=== PATIENT | female | born 1955 | race Caucasian/White ===

== ENCOUNTER 2018-01-21 10:42 | Emergency (ER) | payer OTHER, SELFPAY ==
[2018-01-21 10:45] VITALS: BP 153/79; PULSE 78; RESP 16; TEMP 36.7; O2SAT 100; BMI 27.8
--- NOTE | 2018-01-21 11:03 | EKG12_ITS ---
Test Reason : BACK PAIN Blood Pressure : / mmHG Vent. Rate : 071 BPM Atrial Rate : 071 BPM P-R Int : 188 ms QRS Dur : 090 ms QT Int : 368 ms P-R-T Axes : 061 013 048 degrees QTc Int : 399 ms Normal sinus rhythm Normal ECG Confirmed by PATIENCE CARDONA, RAQUEL ([id number]), movie editor NELIA HANEY ([id number] on 01/24/2018 8:45:36 AM Referred By: ANT Confirmed By:RAQUEL MORIN MD
--- NOTE | 2018-01-21 11:03 | CT_ITS ---
STUDY: CT ABDOMEN AND PELVIS WITHOUT CONTRAST REASON FOR EXAM: Female, 62 years old. RIGHT SIDED BACK PAIN WITH DEEP BREATH. RADIATION DOSAGE (If Supplied By Facility): CTDIvol = ( 7.87 ) mGy, DLP = ( 401.30 ) mGycm TECHNIQUE: Transaxial images were obtained from the dome of the diaphragm to the symphysis pubis without oral contrast, and without intravenous contrast. Sagittal and coronal images were reconstructed. Individualized dose optimization techniques were used for this CT. COMPARISON: None. FINDINGS: There is trace right pleural effusion and atelectasis. The visualized portions of the heart are within normal limits. Normal liver. Normal gallbladder and extrahepatic biliary system. Normal spleen. Normal pancreas. Normal bilateral adrenal glands. Normal right kidney. Normal left kidney. Normal visualized stomach. Normal small intestine. There are multiple colonic diverticula consistent with diverticulosis. The appendix is visualized and appears normal. There is diffuse atherosclerotic calcification of the abdominal aorta, without a demonstrated aneurysm. Normal inferior vena cava. Normal retroperitoneum. Normal urinary bladder. Normal abdominal wall. There are diffuse degenerative changes of the visualized lumbar spine. CT/Abdomen/Pelvis without Cont IMPRESSION: Trace right pleural effusion. No hydronephrosis or urolithiasis. Mild diverticulosis. Mild aortoiliac atherosclerosis Electronically Signed: María Shine MD at 12:08 EDT Tel , Service support ,
--- NOTE | 2018-01-21 11:05 | ED.VISSUMM ---
- ER Visit Summary Date of Service: 01/21/18 Chief Complaint: [] Epigastric pain radiating to the back for a few days History of Present Illness: The patient is a 62 F [] has really no significant past medical history she indicates she is having epigastric pain that radiates to her back for a few days she was seen in urgent care and sent to the emergency department. She has no history of cardiovascular disorders GI ailments, no risk factors. She indicates she feels a pressure in the epigastric and right to the back nothing seems to trigger it or alleviate it. She is quite active physically. She indicates she believes it first began when she was exercising in the gym machine and she felt some discomfort it did not go away. She does report she had a recent EGD because of what was concerning for reflux symptoms, she indicates the EGD was unremarkable she had biopsies done that was also unremarkable she was indicated she was should see ENT because of nighttime coughing and gagging, she herself denies history of MA PE DVT her bowel bladder habits are normal she is eating drinking without difficulty Physical Examination: [] Vitals are normal she is in no distress she takes her hand and points to the epigastric area and then points horizontally to her back, the pain seems to be slightly worse when she moves or takes a deep breath but she denies dyspnea fever cough shortness of breath her HEENT exam is unremarkable her neck is supple her lungs are clear the heart tones unremarkable abdomen soft and nontender there is no area of discomfort she subjectively again points to the epigastric region her C-spine T-spine and lumbar back are unremarkable she has full range of motion of all 4 extremities she is walking around room without difficulty She assures me she did not traumatize herself except for doing these exercises with the bicep press type machine, she is had a negative review of systems given all the above and her complaints about her recent GI elements or workup that did not reveal a diagnosis, a comprehensive evaluation will be pursued Test Results: [] Emergency Department Course and Treatment: [] Studies chest x-ray EKG abdominal CT are generally unremarkable, the x-rays of the chest show diffuse generalized DJD see those reports Given this began while she was doing exercise type activity as above given all of the above findings physical exam workup etc. I explained to this could be something musculoskeletal it could also be related to something occult, given her GI ailment history I do not want to start her on any nonsteroidals she will be started on Tylenol 3 bland diet and she will follow with her family doctor next few days return for change in symptoms and she understands she needs follow-up because the definitive diagnosis unestablished but again she feels well and wants to go home Treatment Plan: [] Disposition: [] Home stable Impression: [] epiGastric pain and back pain This note was generated with [employer] dictation software. It may contain incorrect words, spelling, and punctuation that were not noted in review of the chart prior to signing ED Disposition - Plan for ED Patient: Chief Complaint: Back Referrals: Care Physician,No Primary [NON-STAFF] -
--- NOTE | 2018-01-21 11:08 | ED.DCSUM_ITS ---
- ER Visit Summary Date of Service: 01/21/18 Chief Complaint: [] Epigastric pain radiating to the back for a few days History of Present Illness: The patient is a 62 F [] has really no significant past medical history she indicates she is having epigastric pain that radiates to her back for a few days she was seen in urgent care and sent to the emergency department. She has no history of cardiovascular disorders GI ailments, no risk factors. She indicates she feels a pressure in the epigastric and right to the back nothing seems to trigger it or alleviate it. She is quite active physically. She indicates she believes it first began when she was exercising in the gym machine and she felt some discomfort it did not go away. She does report she had a recent EGD because of what was concerning for reflux symptoms, she indicates the EGD was unremarkable she had biopsies done that was also unremarkable she was indicated she was should see ENT because of nighttime coughing and gagging, she herself denies history of [place] PE DVT her bowel bladder habits are normal she is eating drinking without difficulty Physical Examination: [] Vitals are normal she is in no distress she takes her hand and points to the epigastric area and then points horizontally to her back , the pain seems to be slightly worse when she moves or takes a deep breath but she denies dyspnea fever cough shortness of breath her HEENT exam is unremarkable her neck is supple her lungs are clear the heart tones unremarkable abdomen soft and nontender there is no area of discomfort she subjectively again points to the epigastric region her C-spine T-spine and lumbar back are unremarkable she has full range of motion of all 4 extremities she is walking around room without difficulty She assures me she did not traumatize herself except for doing these exercises with the bicep press type machine, she is had a negative review of systems given all the above and her complaints about her recent GI elements or workup that did not reveal a diagnosis, a comprehensive evaluation will be pursued Test Results: [] Emergency Department Course and Treatment: [] Studies chest x-ray EKG abdominal CT are generally unremarkable, the x-rays of the chest show diffuse generalized DJD see those reports Given this began while she was doing exercise type activity as above given all of the above findings physical exam workup etc. I explained to this could be something musculoskeletal it could also be related to something occult, given her GI ailment history I do not want to start her on any nonsteroidals she will be started on Tylenol 3 bland diet and she will follow with her family doctor next few days return for change in symptoms and she understands she needs follow -up because the definitive diagnosis unestablished but again she feels well and wants to go home Treatment Plan: [] Disposition: [] Home stable Impression: [] epiGastric pain and back pain This note was generated with [employer] dictation software. It may contain incorrect words, spelling, and punctuation that were not noted in review of the chart prior to signing ED Disposition - Plan for ED Patient: Chief Complaint: Back Referrals: Care Physician,No Primary [NON-STAFF] -
[2018-01-21 11:38] LABS: Bacteria 0 SEEN /hpf (None Seen); Mucous, Urine 0 SEEN /hpf (<or=2+); Red Blood Cells-Urine 0 SEEN /hpf (0-5); White Blood Cells 0 SEEN /hpf (0-5)
--- NOTE | 2018-01-21 11:38 | ED.RN ---
pain medicine offered and pt stated she does not want any pain or nausea medication at this time
[2018-01-21 11:39] LABS: Color, Urine Yellow (Yellow); Glucose, Dipstick Normal (Normal); Ketone-Dipstick Negative (Negative); Leukocyte Esterase-Dipstick Negative /ul (Negative); Nitrite-Dipstick Negative (Negative); Occult Blood-Urine 10 /ul (Negative); Protein-Dipstick Negative (Negative); Urine Bilirubin Dipstick Negative (Negative); Urine Clarity Clear (Clear); Urine Urobilinogen Normal (Normal); Urine pH 6.5 (5.0 - 8.0)
[2018-01-21 11:41] LABS: Absolute Lymphocyte Count 1.38 X10^3/ul (0.83-4.51); Absolute Neutrophil Count 3.2 X10^3/uL (2.0-7.7); Basophil# 0.01 X10^3/uL; Basophil% 0.2 % (0-1); Eosinophil# 0.03 X10^3/uL; Eosinophils% 0.6 % (0-5); Hematocrit 41.8 % (37-47); Hemoglobin 13.7 g/dl (12.0-15.0); Lymphocyte # 1.38 X10^3/ul (4.0); Lymphocyte % 28.5 % (19-41); Mean Corp Hgb Conc 32.8 g/gl (32-36); Mean Corpuscular Hgb 29.7 pg (27.0-32.0); Mean Corpuscular Volume 90.5 fL (81-99); Mean Platelet Vol. 10.9 fl (6.2-12.0); Monocyte# 0.27 X10^3/uL; Monocyte% 5.6 % (0-10); Neutrophil # 3.15 X10^3/uL (2.7-7.7); Neutrophil % 65.1 % (47-70); POSITIVE COUNT NO; POSITIVE DIFFERENTIAL NO; POSITIVE MORPHOLOGY NO; Platelet Count 155 K/mm3 (150-450); RBC Distribution Width CV 12.8 % (11.6-14.6); RBC Distribution Width SD 42.1 fl (35.1-43.9); Red Blood Count 4.62 M/mm3 (4.2-5.4); White Blood Count 4.8 K/mm3 (4.4-11.0)
[2018-01-21] MEDS: 0.9% Normal Saline 1,000 ML 125 ML IV (11:42)
[2018-01-21 11:45] LABS: Squamous Epithelial Cells - UA 0-5 SEEN /hpf (5-10)
--- NOTE | 2018-01-21 11:48 | RAD_ITS ---
STUDY: X-RAY CHEST REASON FOR EXAM: Female, 62 years old. BACK PAIN WITH INSPIRATION AND PRESSURE IN THE CHEST. TECHNIQUE: Chest PA and lateral COMPARISON: None. FINDINGS: There is no focal consolidation, pneumothorax or pleural effusion. There is atherosclerotic calcification of the aortic arch with tortuosity. The cardiomediastinal silhouette is unremarkable. There are diffuse degenerative changes of the visualized thoracic spine. RAD/Chest PA and Lateral IMPRESSION: No acute pulmonary disease. Electronically Signed: María Shine MD at 12:13 EDT Tel , Service support ,
[2018-01-21 11:50] LABS: D-Dimer Quantitative (DVT/PE) 0.36 FEU/ug/m (0.27-0.49)
[2018-01-21 11:55] LABS: AST(SGOT) 15 U/L (15-37); Alanine Aminotransfer ALT/SGPT 20 U/L (13-56); Albumin, Serum 3.9 g/dL (3.2-5.0); Alkaline Phosphatase 100 U/L (45-117); Anion Gap 8 (5-15); BUN 14 mg/dL (7-18); BUN/Creat Ratio 19.3 RATIO (10-20); Bilirubin, Direct 0.09 mg/dL (0.00-0.30); Calcium,Total 8.8 mg/dL (8.5-10.1); Chloride 107 mmol/L (98-107); Creatinine, Serum 0.72 mg/dL (0.55-1.02); EST Glomerular Filtration Rate 87 mL/min (>60); Est Glom Filt Rate - Afr Amer 106 mL/min (>60); Estimated Creatinine Clearance 71.75 ml/min; Globulin 3.7 g/dL (2.2-4.2); Glucose 94 mg/dL (74-106); Lipase 126 U/L (73-393); Potassium 3.8 mmol/L (3.5-5.1); Protein, Total 7.6 g/dL (6.4-8.2); Sodium Level 142 mmol/L (136-145)
[2018-01-21 12:11] VITALS: BP 131/66; PULSE 76; RESP 18; O2SAT 100
--- NOTE | 2018-01-21 12:58 | ED.DEP ---
ED Disposition - Plan for ED Patient: Chief Complaint: Back Instructions: ED Sprain Strain Lumbar Prescriptions: Acetaminophen/Codeine #3 [Tylenol #3 Tablet] 1 - 2 tab PO Q6H PRN #12 tab PRN Reason: Pain Referrals: Care Physician,No Primary [NON-STAFF] -
[2018-01-21 13:45] VITALS: BP 107/84; PULSE 73; RESP 18; O2SAT 99
== END 2018-01-21 13:47 | disposition home or self-care (01) ==
PROVIDERS: Emergency Provider Emergency Medicine; Family Provider Internal Medicine; PCP Internal Medicine
DX: R10.13 Epigastric pain (principal); M54.9 Dorsalgia, unspecified
CPT/HCPCS: 71046; 74176; 80048; 80076; 81001; 83690; 84484; 85025; 85379; 93005; 96361; 96374; 96375; 99283; A4216

== ENCOUNTER 2023-10-30 09:59 | Emergency (ER) | payer OTHER, SELFPAY ==
[2023-10-30 10:00] VITALS: BP 109/82; PULSE 86; RESP 16; TEMP 36.4; O2SAT 100; BMI 27.8
[2023-10-30] MEDS: Morphine 4 MG/ML Syringe IM (11:27)
--- NOTE | 2023-10-30 11:29 | EDS_ITS ---
HPI History of Present Illness Chief Complaint: Upper Extremity Injury Informant: patient Narrative Narrative: Patient is a 67-year-old female with worsening left shoulder pain. Denies any trauma. Notes she woke up with pain 2 days ago but did not think much of it. The pain persisted throughout the day. She took Aleve with no relief. He also tried arthritis strength Tylenol again with no relief. She states that it is a sharp stabbing pain in her anterior and posterior shoulder intermittently that is worse with movement. It is constantly throbbing in nature. States the pain radiates all the way down to her hand. It is worse when she reclines. She denies any paresthesias but does have this vague sensation of numbness/pain of her entire left hand. Denies any trauma or injury. No she has had prior bone spurs remotely that cause pain but never this severe. Could not sleep last night because the pain was so bad so she came to the ER. Does follow-up with orthopedics as a prior right total shoulder surgery with Dr. Bar. No complaints or concerns at this time. [facility] Medical History Fatigue Home Medications NK 10/23/21 [History Last Taken Unknown] hydrocodone-acetaminophen 5-325mg 5mg-325mg 1 tab PO Q6H PRN PRN Pain 3 days #12 TABLETS 10/30/23 [Rx Last Taken Unknown] ondansetron HCl 4 mg tablet 4 mg PO Q6H PRN nausea and vomiting #10 tabs 10/30/23 [Rx Last Taken Unknown] prednisone 20 mg tablet 40 mg (2 x 20 mg) PO DAILY #8 tabs 10/30/23 [Rx Last Taken Unknown] Allergy/AdvReac Type Severity Reaction Status Date / Time No Known Allergies Allergy Verified 10/30/23 10:00 Surgical History H/O section Social History Smoking Status: Never smoker ROS ROS ED Constitutional Constitutional ED: Denies chills or fever(s) Cardiovascular Cardiovascular: Denies chest pain Respiratory/Chest Respiratory/Chest: Denies cough Gastrointestinal Gastrointestinal: Denies nausea or vomiting Musculoskeletal Musculoskeletal: Reports other Details: left shoulder pain Integumentary Denies rash Neurologic Neurologic: Denies headache(s), paresthesias or weakness EXAM Physical Exam Const Vital Signs: 10/30/23 10:00 Temperature 97.6 F L Temperature Source Temporal Pulse Rate 86 Respiratory Rate 16 Blood Pressure 109/82 H Blood Pressure Mean 91 Pulse Ox 100 Oxygen Delivery Method Room Air Positive well nourished and well developed General Appearance ED: well developed and NAD Eyes PERRL Neck full ROM Chest Wall inspection of chest normal and palpation of chest normal Resp normal respiratory effort and clear to auscultation bilaterally Cardio regular rate and regular rhythm Cardio Narrative: 2 Plus radial pulses GI non-tender and non-distended Back/Spine Cervical Spine: Negative for cervical spine tenderness Thoracic Spine / Upper Back: Negative for thoracic spinal tenderness Extremity Extremity Narrative: Range of motion of the left shoulder secondary to pain. No obvious deformity of the shoulder. No tenderness palpation of the clavicle. Pinpoint tenderness to palpation over the insertion of the long head of the bicep muscle as well as tenderness to palpation more diffusely of the posterior shoulder. Unable to perform strength testing of the shoulder/range of motion secondary to pain. No obvious deformity or tenderness palpation of the humerus, elbow or distal left arm. Normal intrinsic and extrinsic movements of the hands. Neuro oriented x3, moves all extremities, no focal motor deficits and no sensory deficits noted Sensorium / Orientation: alert Psych mental status grossly normal Mood & Affect: anxious Skin Lesions: no lesions Rashes: no rashes MDM MDM MDM Narrative Medical decision making narrative: Evaluated for worsening severe left shoulder pain. This seems very muscle skeletal I do not think is referred cardiac or pulmonary pain. She is neurovascular intact distally. She does have pinpoint tenderness of the right anterior shoulder. Will obtain x-ray however she denies any recent trauma. X-ray viewed by myself as well as radiology shows no acute fracture or dislocation but does show findings consistent with calcific tendinitis. This corresponds to her area of pain. Patient is given a dose of 4 mg IM morphine in the emergency room. She has improvement of pain with this. Will be discharged with prescription for [place] (has tolerated Vicodin in the past) as well as a burst of prednisone. Is given first dose of prednisone in the emergency room. We discussed a sling however patient states that she tried a sling at home and it made it worse because of the positioning. Discussed range of motion exercises to prevent frozen shoulder. She verbalized agreement understand this. Will follow-up with [facility] (she previously saw Dr. De León for her right shoulder). Given return precautions. Discharged home in stable and improved condition. Radiography Diagnostic Testing: Diagnostic Data Shoulder X-Ray 10/30/23 11:30 IMPRESSION: No acute abnormality. Calcific tendinitis. Electronically Signed: Anselmo Heath MD at 11:48 EST , Discharge Plan Triage Chief Complaint: Upper Extremity Injury ED Provider: Myrna Lopez Dx/Rx/DC Orders Clinical Impression: Calcific tendonitis of left shoulder Instructions: The Shoulder Joint, ED Tendonitis Prescriptions: New hydrocodone-acetaminophen 5-325 mg tablet 1 tab PO Q6H PRN PRN (Reason: Pain) 3 Days Qty: 12 0RF prednisone 20 mg tablet 40 mg PO DAILY Qty: 8 0RF ondansetron HCl 4 mg tablet 4 mg PO Q6H PRN (Reason: nausea and vomiting) Qty: 10 0RF No Action NK Primary Care Provider: Sada Sanabria Referrals: Sada Sanabria MD [Primary Care Provider] - Juancarlos Bar DO [Med Staff - Active Staff] - 3-5 Days if not improving Activity Restrictions/Additional Instructions: He also take additional Tylenol and alternate with ibuprofen for pain. Please be aware that your pain medicine does have 1 regular strength Tylenol in it. As we discussed please perform range of motion exercises (small habematolel, large habematolel) to prevent associated frozen shoulder. Disposition Disposition: Home, Self Care
--- NOTE | 2023-10-30 11:30 | RAD_ITS ---
EXAM: XR LEFT SHOULDER COMPLETE, 2 OR MORE VIEWS CLINICAL INDICATION: Injury/Pain TECHNIQUE: Two or more views of the left shoulder. COMPARISON: No relevant prior studies available. FINDINGS: BONES/JOINTS: No acute abnormality. SOFT TISSUES: Soft tissue calcification adjacent to the greater tubercle consistent with calcific tendinitis. No soft tissue swelling or gas. No radiopaque foreign body. RAD/Shoulder min 2 Views IMPRESSION: No acute abnormality. Calcific tendinitis. Electronically Signed: Anselmo Heath MD at 11:48 EST ,
--- OUTSIDE RECORDS SUMMARY | 2023-10-30 11:32 | XMS RPT_ITS | CCD ---
Author Name Unknown Address [address] [place] [address] Organization [facility] Care Team Providers Care Director Of First Impressions Name Role Phone Vides, Anuj K Unavailable Unavailable Vides, Anuj K Unavailable Unavailable Ganta, Sada C Unavailable Unavailable Vides, Anuj K Unavailable Unavailable Vides, Anuj K Unavailable Unavailable Ganta, Sada C Unavailable Unavailable JEANCARLOS, RYNE Case Admitting Unavailable JEANCARLOS, RYNE Case Attending Unavailable JEANCARLOS, RYNE Case Primary Care Unavailable JEANCARLOS, RYNE Case Admitting Unavailable JEANCARLOS, RYNE Case Attending Unavailable JEANCARLOS, RYNE Case Primary Care Unavailable Sada Sanabria MD Primary Care Provider [phone] Sada Sanabria MD Primary Care Provider [phone] Unavailable Primary Care Provider Unavailabl e VIDES, ANUJ K Attending Unavailable VIDES, ANUJ K Referring Unavailable GANTA, SADA Primary Care Unavailable ENRIQUEZKELSI ALLRED Referring Unavailable GANTA, SADA Primary Care Unavailable KELSI ENRIQUEZ Attending Unavailable FABRIZIO LAKIA Referring Unavailable GANTA, SADA Primary Care Unavailable OLDERLAKIA Referring Unavailable GANTA, SADA Primary Care Unavailable Sada Sanabria MD Primary Care Provider [phone] Allergies Allergy Classification Reported Allergen(s) Allergy Type Date of Onset Reaction(s) Facility (1 source) Acetaminophen / Codeine; Translations: [Tylenol with Codeine] [facility] source) FLUoxetine; Translations: [PROzac] [facility] (12 sources) Acetaminophen / Codeine; Translations: [ACETAMINOPHEN-COD EINE] Drug Allergy 01-27-2018 Intolerance [facility] (12 sources) FLUoxetine; Translations: [FLUOXETINE] Drug Allergy 07-18-2019 Unknown [facility] (12 sources) FLUoxetine; Translations: [FLUOXETINE HCL] Drug Allergy 06-05-2008 [facility] Work Phone: (12 sources) nefazodone; Translations: [NEFAZODONE HCL] Drug Allergy 06-05-2008 [facility] Work Phone: (12 sources) traMADol; Translations: [TRAMADOL] Drug Allergy 12-13-2018 Intolerance [facility] Medications Completed/Discontinued Medications Medication Drug Class(es) Dates Sig (Normalized) Sig (Original) cholecalciferol 0.05 mg oral capsule (2 sources) Vitamin D Start: 05-26-2015 End: 07-26-2022 take 1 capsule by mouth once daily Cholecalciferol, Vitamin D3, (VITAMIN D-3) 2,000 unit cap Take 1 capsule by mouth once daily. 0 05/26/2015 07/26/2022 Discontinued (Discontinued by Patient) Problems Active Problems Problem Classification Problem Date Documented Date Episodic/Chronic Anxiety disorders (14 sources) Anxiety; Translations: [Anxiety disorder, unspecified] Onset: 07-09-2021 Chronic Cataract (20 sources) Bilateral pseudophakia; Translations: [Presence of intraocular lens] Onset: 02-16-2019 Chronic Disorders of lipid metabolism (12 sources) Mixed hyperlipidemia; Translations: [Mixed hyperlipidemia] Onset: 01-18-2022 01-18-2022 Chronic Inflammation; infection of eye (except that caused by tuberculosis or sexually transmitteddisease) (11 sources) Bilateral punctate keratitis of eyes; Translations: [Punctate keratitis, bilateral] Onset: 08-14-2018 08-14-2018 Chronic Other connective tissue disease (2 sources) History of osteopenia; Translations: [Personal history of other diseases of the musculoskeletal system and connective tissue] Episodic Other eye disorders (13 sources) Posterior vitreous detachment of right eye; Translations: [Vitreous degeneration, right eye] Onset: 08-14-2018 Chronic Other eye disorders (13 sources) Bilateral vitreous floaters; Translations: [Other vitreous opacities, bilateral] Onset: 07-09-2021 Chronic Other inflammatory condition of skin (11 sources) Rosacea; Translations: [Rosacea, unspecified] Onset: 09-02-2006 10-12-2021 Chronic Other screening for suspected conditions (not mental disorders or infectious disease) (11 sources) Patient encounter status; Translations: [Encounter for screening mammogram for malignant neoplasm of breast] Onset: 12-20-2022 Episodic Residual codes; unclassified (2 sources) Postmenopausal state; Translations: [Asymptomatic menopausal state] Episodic Past or Other Problems Problem Classification Problem Date Documented Date Episodic/Chronic Blindness and vision defects (11 sources) Regular astigmatism of left eye; Translations: [Regular astigmatism, left eye] Onset: 08-14-2018 08-14-2018 Episodic Other bone disease and musculoskeletal deformities (11 sources) Osteopenia; Translations: [Other specified disorders of bone density and structure, unspecified site] Onset: 05-29-2014 05-29-2014 Episodic Other circulatory disease (11 sources) Clearing throat - hawking; Translations: [Other specified symptoms and signs involving the circulatory and respiratory systems] Onset: 12-27-2017 12-27-2017 Episodic Other connective tissue disease (1 source) Personal history of other diseases of the musculoskeletal system and connective tissue; Translations: [History of osteopenia] Onset: 01-03-2023 Episodic Other eye disorders (11 sources) H/O: R cataract extraction; Translations: [Cataract extraction status, right eye] Onset: 09-29-2018 09-29-2018 Episodic Other eye disorders (11 sources) H/O: L cataract extraction; Translations: [Cataract extraction status, left eye] Onset: 10-06-2018 10-06-2018 Episodic Other eye disorders (11 sources) Meibomian gland dysfunction of bilateral eyes; Translations: [Meibomian gland dysfunction right eye, upper and lower eyelids] Onset: 04-14-2019 04-14-2019 Episodic Other injuries and conditions due to external causes (2 sources) Foreign body in conjunctival sac; Translations: [Foreign body in conjunctival sac, left eye, initial encounter] Onset: 07-08-2020 07-08-2020 Episodic Other injuries and conditions due to external causes (9 sources) Foreign body in conjunctival sac, left eye, initial encounter; Translations: [Foreign body in conjunctival sac] Onset: 07-08-2020 07-08-2020 Episodic Residual codes; unclassified (11 sources) Insomnia; Translations: [Insomnia, unspecified] Onset: 09-07-2010 09-07-2010 Episodic Residual codes; unclassified (11 sources) Family history of breast cancer; Translations: [Family history of malignant neoplasm of breast] Onset: 05-26-2015 10-12-2021 Episodic Residual codes; unclassified (1 source) Asymptomatic menopausal state; Translations: [Asymptomatic postmenopausal state] Onset: 01-03-2023 Episodic Results Test Name Value Interpretation Reference Range Facil ity Vital Signs Date Time Vital Sign Value Performing Clinician Ivy stevenson 12-20-2022 08:53-0500 Body height 162.6 cm Kelsi Enriquez APRN.INDUSTRIAL CUSTODIAN Work Phone: [facility] 12-20-2022 08:53-0500 Body weight 79.38 kg Kelsi Enriquez JUNIOR MANUFACTURING ENGINEER.INDUSTRIAL CUSTODIAN Work Phone: [facility] 12-20-2022 08:53-0500 Diastolic blood pressure 64 mm[Hg] Kelsi Enriquez JUNIOR MANUFACTURING ENGINEER.INDUSTRIAL CUSTODIAN Work Phone: [facility] 12-20-2022 08:53-0500 Systolic blood pressure 120 mm[Hg] Kelsi Enriquez JUNIOR MANUFACTURING ENGINEER.INDUSTRIAL CUSTODIAN Work Phone: [facility] 07-26-2022 08:44-0400 Body weight 76.2 kg Lakia Older JUNIOR MANUFACTURING ENGINEER.INDUSTRIAL CUSTODIAN Work Phone: [facility] 07-26-2022 08:44-0400 Diastolic blood pressure 82 mm[Hg] Lakia Older JUNIOR MANUFACTURING ENGINEER.INDUSTRIAL CUSTODIAN Work Phone: [facility] 07-26-2022 08:44-0400 Heart rate 68 /min Lakia Older JUNIOR MANUFACTURING ENGINEER.INDUSTRIAL CUSTODIAN Work Phone: [facility] 07-26-2022 08:44-0400 Respiratory rate 16 /min Lakia Older JUNIOR MANUFACTURING ENGINEER.INDUSTRIAL CUSTODIAN Work Phone: [facility] 07-26-2022 08:44-0400 Systolic blood pressure 124 mm[Hg] Lakia Older JUNIOR MANUFACTURING ENGINEER.INDUSTRIAL CUSTODIAN Work Phone: [facility] Encounters Encounter Date Encounter Type Care Provider Facility Start: 07-25-2023 End: 07-25-2023 ambulatory ANUJ VIDES Facility:[facility] Start: 07-25-2023 End: 07-25-2023 Patient encounter procedure Anuj Vides MD Work Phone: Ophthalmology Procedures Date Procedure Procedure Detail Performing Clinician Start: 01-03-2023 Dxa bone density sameer dy 1/> sites axial skel Kelsi Enriquez JUNIOR MANUFACTURING ENGINEER.INDUSTRIAL CUSTODIAN Work Phone: Start: 12-20-2022 MONICA SCREENING W LUIS Nai y Older JUNIOR MANUFACTURING ENGINEER.INDUSTRIAL CUSTODIAN Work Phone: Start: 12-20-2022 Mammography Kelsi case JUNIOR MANUFACTURING ENGINEER.INDUSTRIAL CUSTODIAN Work Phone: Start: 11-16-2021 Mammography Anuj diaz MD Work Phone: Start: 07-11-2021 Lipid 1996 panel - S nancy or Plasma Anuj Vides MD Work Phone: Start: 02-12-2019 Colonoscopy Anuj diaz MD Work Phone: Plan of Treatment Date Care Activity Detail Author Start: 02-12-2029 Colonoscopy COLONOSCOPY [facility] Start: 02-12-2029 COLORECTAL CANCER SCREENING COLORECTAL CANCER SCREENING [facility] Start: 07-11-2026 Lipid 1996 panel - S nancy or Plasma Lipid Screening [facility] Start: 07-11-2026 LIPID SCREEN LIPID SCREEN [facility] Start: 07-11-2024 DIABETES SCREEN DIABETES SCREEN [facility] Start: 07-11-2024 Diabetes Screening Diabetes Screenin g [facility] Start: 02-01-2024 HPV TESTING HPV TESTING [facility] Start: 02-01-2024 PAP TESTING PAP TESTING [facility] Start: 12-21-2023 Mammography [facility] Start: 07-26-2023 COVID-19 VACCINE (3 - Booster for Pfizer series) COVID-19 VACCINE (3 - Booster for Pfizer series) [facility] Immunizations Immunization Date Immunization Notes Care Provider Fa cili 03-10-2022 zoster vaccine recombinant Anuj Vides MD Work Phone: [facility] 01-18-2022 tetanus and diphther ia toxoids, adsorbed, preservative free, for adult use (5 Lf of tetanus toxoid and 2 Lf of diphtheria toxoid) Anuj Vides MD Work Phone: [facility] Work Phone: 07-20-2021 influenza, injectabl e, quadrivalent, contains preservative Anuj Vides MD Work Phone: [facility] Work Phone: 07-20-2021 influenza virus vaccine, unspecified formulation Anuj Vides MD Work Phone: [facility] 10-18-2018 influenza, injectabl e, quadrivalent, contains preservative Anuj Vides MD Work Phone: [facility] Work Phone: 11-28-2017 influenza, injectabl e, quadrivalent, contains preservative Anuj Vides MD Work Phone: [facility] Work Phone: 09-18-2014 influenza, seasonal, injectable Anuj Vides MD Work Phone: [facility] Work Phone: 08-29-2012 influenza virus vaccine, unspecified formulation Anuj Vides MD Work Phone: [facility] 09-07-2010 influenza virus vaccine, unspecified formulation Anuj Vides MD Work Phone: [facility] 07-19-2009 influenza virus vaccine, unspecified formulation Anuj Vides MD Work Phone: [facility] Work Phone: 09-17-2008 influenza virus vaccine, unspecified formulation Anuj Vides MD Work Phone: [facility] Work Phone: 06-16-2006 tetanus and diphther ia toxoids, adsorbed, preservative free, for adult use (2 Lf of tetanus toxoid and 2 Lf of diphtheria toxoid) Anju Vides MD Work Phone: [facility] Work Phone: Payers Date Payer Category Payer Private Health Insurance [id number] 2021 Private Health Insurance [id number] 2018 Unknown 1955 Unknown [id number] 1955 Unknown [id number] 1955 Unknown [id number] [id number] 1955 Unknown [id number] [id number] 1955 Unknown [id number] [id number] [id number] 1955 Unknown [id number] [id number] Unknown [id number] Social History Date Type Detail Facility Start: 12-20-2022 Tobacco smoking status NHIS Never smoked tobacco [facility] Work Phone: Start: 07-21-2022 End: 12-20-2022 Alcohol intake Current drinker of alcohol (finding) [facility] Start: 06-02-2021 History SDOH Alcohol Frequency 2 [facility] Start: 06-02-2021 History SDOH Alcohol Std Drinks 1 [facility] Start: 08-18-2016 History SDOH Alcohol Comment Rarely [facility] Start: 06-02-2021 History SDOH Social Connections Phone 5 [facility] Start: 06-02-2021 History SDOH Social Connections Get Together 98 [facility] Start: 06-02-2021 History SDOH Social Connections Living 3 [facility] Start: 06-02-2021 History SDOH Physical Activity DPW 7 [facility] Start: 06-02-2021 Education 12 [facility] Start: 1955 Sex Assigned At Female [facility] Start: 07-11-2022 End: 07-21-2022 Exposure to SARS-CoV-2 (event) Not sure [facility] Start: 12-20-2022 Tobacco use and exposure Smokeless tobacco non-user [facility] Start: 09-21-2020 End: 06-02-2021 History of Social function [facility] Work Phone: Start: 09-21-2020 End: 06-02-2021 Social connection and isolation panel [facility] Work Phone: How often do you get together with friends or relatives? Patient refused [facility] Work Phone: Do you belong to any clubs or organizations such as spiritism groups, unions, fraternal or athletic groups, or school groups? No [facility] Work Phone: Are you now , , , , never or living with a partner? [facility] Work Phone: How often to you hav e a drink containing alcohol? Monthly or less [facility] Work Phone: How many standard dr inks containing alcohol do you have on a typical day? 1 or 2 [facility] Work Phone: How often do you hav e 6 or more drinks on 1 occasion? Never [facility] Work Phone: Do you feel stress - tense, restless, nervous, or anxious, or unable to sleep at night because your mind is troubled all the time - these days [OSQ] To some extent [facility] Work Phone: (I/We) worried wheth er (my/our) food would run out before (I/we) got money to buy more. Never true [facility] Work Phone: Start: 06-02-2021 Gender identity Identifies as female gender (finding) [facility] Start: 06-02-2021 Sexual orientation Heterosexual (finding) [facility] Clinical Notes 09-02-2018 to 07-25-2023 Patient InstructionsAnuj Vides MD - 07/25/2023 3:11 PM Natan Toribio RT(R) - 01/03/2023 9:30 AM Michelle - Mammography Coordinator - 12/20/2022 1:55 PM ESTPatient Instructions Note Date & Type Note Facility 07-25-2023 Note HNO ID: [id number] Author: Anuj Vides MD Service: ? Author Type: Physician Type: Progress Notes Filed: 07/25/2023 3:13 PM Note Text: ASSESSMENT/PLAN: 1. Cataract, secondary, not obscuring vision, right - ICD9: 366.52, ICD10: H26.491 (primary diagnosis) -stable/monitor -not significant at this time 2. Posterior vitreous detachment of right eye - ICD9: 379.21, ICD10: H43.811 3. Vitreous floaters of both eyes - ICD9: 379.24, ICD10: H43.393 -Patient was given both written and verbal information on flashes and floaters. Patient was instructed to call the office ([phone]) immediately upon noticing flashes of light, increase in floaters, or changes in vision. 4. Pseudophakia of both eyes - ICD9: V43.1, ICD10: Z96.1 -Intraocular lens well centered 5. Anxiety - ICD9: 300.00, ICD10: F41.9 -Continue care with primary care physician Continue: Systane Complete one drop three times daily in both eyes I have confirmed and edited as necessary the relevant ophthalmic history, review of systems, surgical history, and ophthalmological examination findings as obtained by the ophthalmic technical staff. I have seen and examined Tabitha Nagy. I have discussed the examination findings, diagnosis, and treatment options with Tabitha Nagy and/or her family. I have also reviewed and agree with the assessment and plan as stated above and agree with all its relevant components. I gave the patient the opportunity to ask questions about the findings, diagnosis, and treatment options. Anuj Vides MD [facility] 07-25-2023 Instructions Anuj Vides MD - 07/25/2023 3:13 PM EDT Continue: Systane Complete one drop three times daily in both eyes If you have any questions please contact our office at [phone]. After office hours or on the weekend, please call Dr. Vides on his cell phone at [phone]. documented in this encounter [facility] 07-25-2023 History of Presen t illness Narrative ASSESSMENT/PLAN: 1. Cataract, secondary, not obscuring vision, right - ICD9: 366.52, ICD10: H26.491 (primary diagnosis) -stable/monitor -not significant at this time 2. Posterior vitreous detachment of right eye - ICD9: 379.21, ICD10: H43.811 3. Vitreous floaters of both eyes - ICD9: 379.24, ICD10: H43.393 -Patient was given both written and verbal information on flashes and floaters. Patient was instructed to call the office ([phone]) immediately upon noticing flashes of light, increase in floaters, or changes in vision. 4. Pseudophakia of both eyes - ICD9: V43.1, ICD10: Z96.1 -Intraocular lens well centered 5. Anxiety - ICD9: 300.00, ICD10: F41.9 -Continue care with primary care physician Continue: Systane Complete one drop three times daily in both eyes I have confirmed and edited as necessary the relevant ophthalmic history, review of systems, surgical history, and ophthalmological examination findings as obtained by the ophthalmic technical staff. I have seen and examined Tabitha Nagy. I have discussed the examination findings, diagnosis, and treatment options with Tabitha Nagy and/or her family. I have also reviewed and agree with the assessment and plan as stated above and agree with all its relevant components. I gave the patient the opportunity to ask questions about the findings, diagnosis, and treatment options. Anuj Vides MD documented in this encounter [facility] 01-03-2023 Note HNO ID: [id number] Author: Natan Izaguirre RT(R) Service: ? Author Type: Technologist Type: Progress Notes Filed: 01/03/2023 9:42 AM Note Text: Radiology Service Progress Note PATIENT NAME: Tabitha Nagy DATE OF SERVICE: January 03, 2023 TIME: 9:32 AM PATIENT IDENTITY VERIFICATION COMPLETED USING TWO (2) IDENTIFIERS: Name and Date of confirmed by patient verbally. FALL SCREENING: Has the patient had 2 falls in the last year or 1 fall with injury or currently using an Ambulatory Assistive Device (Walker, Cane, Wheelchair, Crutches, etc.)? No PATIENT GENDER DATA: Female. status: : No status: NO. PATIENT RELEVANT IMPLANT DATA REVIEWED: Not Applicable RADIOLOGY DEPARTMENT: Bone Density PERIPHERAL IV DATA: Not applicable SIGNED BY: RT Tyree(R) January 03, 2023 9:[address] [facility] 01-03-2023 History of Presen t illness Narrative Radiology Service Progress Note PATIENT NAME: Tabitha Nagy DATE OF SERVICE: January 03, 2023 TIME: 9:32 AM PATIENT IDENTITY VERIFICATION COMPLETED USING TWO (2) IDENTIFIERS: Name and Date of confirmed by patient verbally. FALL SCREENING: Has the patient had 2 falls in the last year or 1 fall with injury or currently using an Ambulatory Assistive Device (Walker, Cane, Wheelchair, Crutches, etc.)? No PATIENT GENDER DATA: Female. status: : No status: NO. PATIENT RELEVANT IMPLANT DATA REVIEWED: Not Applicable RADIOLOGY DEPARTMENT: Bone Density PERIPHERAL IV DATA: Not applicable SIGNED BY: RT Tyree(R) January 03, 2023 9:32 AM documented in this encounter [facility] 12-20-2022 Miscellaneous Notes December 21, 2022 PID: [id number] Tabitha Nagy [id number] [facility] [address] [place] [address] Dear Ms. Nagy, We are pleased to inform you that the results of your recent breast imaging exam on 12/20/2022 are normal. Early detection of cancer is very important. We also understand recommendations regarding breast cancer screening are controversial. Please discuss with your primary care provider which strategy is best for you and whether a mammogram is right for you. Your imaging studies and report will be kept on file at [facility] as part of your permanent medical record and are available for your continuing care. Thank you for allowing us to help in meeting your health care needs. Sincerely, Dr. Riley Interpreting Radiologist [facility] (Normal over 40) documented in this encounter [facility] 12-20-2022 Note HNO ID: [id number] Author: Kelsi Enriquez APRN.INDUSTRIAL CUSTODIAN Service: ? Author Type: Nurse Practitioner Type: Progress Notes Filed: 12/20/2022 9:23 AM Note Text: House Parent offered: Patient declines. Lida is a 67 year old who presents for an annual gynecologic exam without complaints. Works 32 hours a week at [employer] - really enjoys her job. Postmenopausal: Yes since age 51 HRT use: No. Last Pap: 2019 normal HPV: 2019 negative History of abnormal pap: No Last mammogram: today, pending History of abnormal mammogram: Yes , has needed additional imaging, scattered fibroglandular elements Sexually active: Yes, rarely due to ED Patient concerns for STD exposure: No. Time with current partner: 41 years Pain with intercourse: Yes, uses lubricant Postcoital bleeding: No Hot flashes: No Night sweats: No Vaginal dryness: Yes, lubricant helpful with SI Documentation from previous visit of 01/31/2019 was copied and pasted, documentation has been reviewed and edited as necessary for today's visit OB History T2 L2 SAB3 IAB0 Ectopic0 Multiple0 Live Births0 Comment: Menarche at age 12. G 5 P 2. AFB 31. Menopause at age 51. Manager Nursing History LMP: 09/16/2006, Postmenopausal Age at Menarche: Age at First : Age at Menopause: Manager Nursing History Comments: Sexual Activity: Yes; Male; Postmenopausal Contraception: Tubal Ligation PAST MEDICAL HISTORY Diagnosis Date Abnormal mammogram, unspecified 10/29/2008 Acid reflux 11/28/2017 Acute, but ill-defined, cerebrovascular disease Cataract COVID-19 virus infection 05/24/2021 s/p COVID vaccine Depressive disorder, not elsewhere classified 03/23/2006 Impingement syndrome, shoulder, left Other acne Other bursitis disorders hips Pain in limb 03/23/2006 Right Wrist Pain Solitary cyst of breast 10/2008 right breast-MRI Variants of migraine, not elsewhere classified, without mention of intractable migraine without mention of status migrainosus PAST SURGICAL HISTORY Procedure Laterality Date DELIVERY ONLY 1988 , low transverse DELIVERY ONLY 1997 , low transverse COLONOSCOPY 2019 10 yr interval COLONOSCOPY FLX DX W/COLLJ SPEC WHEN PFRMD 12/09/2008 Colonoscopy DILATION AND CURETTAGE DXAND/THER NONOBSTETRIC 1986 Dilation AND curettage DILATION AND CURETTAGE DXAND/THER NONOBSTETRIC 1987 Dilation AND curettage DILATION AND CURETTAGE DXAND/THER NONOBSTETRIC 1994 Dilation AND curettage DILATION AND CURETTAGE DXAND/THER NONOBSTETRIC 1995 Dilation AND curettage ESOPHAGOGASTRODUODENOSCOPY TRANSORAL DIAGNOSTIC 01/02/2018 EGD MRI BREAST THAIS 10/02/2008 PAST SURGICAL HISTORY OF PAST SURGICAL HISTORY OF 1997 BTO PAST SURGICAL HISTORY OF 04/23/2009 athroscopy right shoulder REDUCTION OF LARGE BREAST 02/2012 XCAPSL CTRC RMVL INSJ IO LENS PROSTH W/O ECP Right 09/28/2018 Cataract Extraction with Femtosecond Laser (LenSx) XCAPSL CTRC RMVL INSJ IO LENS PROSTH W/O ECP Left Femtosecond with LRI FAMILY HISTORY Problem Relation Age of Onset Diabetes Mother Breast Cancer Mother diagnosed at age 74 Hypertension Father Heart Father Diabetes Father Age 82 Cataract Father SOCIAL HISTORY Social History Tobacco Use Smoking status: Never Smokeless tobacco: Never Vaping Use Vaping Use: Never used Substance Use Topics Alcohol use: Yes Comment: Rarely Drug use: No REVIEW OF SYSTEMS Abdomen: No abdominal pain, nausea, vomiting, diarrhea, or constipation. No bloating, early satiety, indigestion, or increased flatulence. Bladder: No dysuria, gross hematuria, urinary frequency, urinary urgency, or incontinence Breast: No breast lumps, nipple d/c, overlying skin changes, redness or skin retraction Allergies and current medication updated:Yes EXAM: BP 120/64 Ht 5' 4 (1.63m) Wt 175 lb (79.4kg) LMP 09/16/2006 BMI 30.02 kg/(m2). GENERAL: pleasant, female in no apparent distress HEENT: Normocephalic, atraumatic, mucus membranes moist, and no lesions NECK: Supple, full range of motion, no adenopathy, and thyroid normal DERMATOLOGY: Normal, without lesions, non-icteric, and non-hirsute BREAST: soft, non-tender, symmetric, no dominant mass, normal nipple-areolar complex, no lymphadenopathy, and no nipple discharge CHEST: Normal inspiratory effort ABDOMEN: soft, non-tender, and no masses PELVIC: external genitalia normal, normal Bartholin's glands, urethra, Aventura's glands, no vulvar lesions, no cervical lesions, physiologic discharge present, normal appearing perineal body and perianal region BIMANUAL: uterus normal size, shape and consistency, no adnexal masses, and non-tender RECTOVAGINAL: deferred. NEURO: alert and oriented x3,exam grossly non-focal EXTREMITIES: normal ASSESSMENT/PLAN: 1) Health maintenance: Pap done with HPV. Mammogram ordered Mammogram (more content not included)... [facility] 12-20-2022 Instructions Kelsi Enriquez APRN.[facility] - 12/20/2022 9:10 AM EST Calcium and Vitamin D Supplementation (from the National Institutes of Health Office of Dietary Supplements 2011) Calcium 1200 mg daily - 600 mg twice a day if taking supplement and Vit D 800-1000 IU daily Calcium is required by the body for blood vessel, muscle, hormone and nerve functioning. Most of the body's calcium is stored in the bones and teeth where it supports structure and function. Bone is continuously broken down and reformed. When bone breakdown exceeds formation, especially in postmenopausal women, bone loss can increase the risk of osteoporosis and fractures. In addition to low calcium intake, women who smoke, have a family history of osteoporosis, are thin, or , or who take certain medications such as cancer chemotherapy, seizure mediations and steroids are at increased risk of osteoporosis. The calcium requirements in women change with age. The National Institutes of Health (NIH) recommends: 1000mg elemental calcium for premenopausal women age 19-50 1200mg elemental calcium for postmenopausal women and all women over 50 Milk, yogurt, and cheese are rich natural sources of calcium and are the major food contributors in the [place]. For example, 8oz of milk (whole, lowfat or skim) contains about 300mg calcium, 8oz of yogurt contains 415mg. Nondairy sources include salmon and sardines and vegetables, such as Turkmen cabbage, kale, and broccoli. Foods fortified with calcium include many fruit juices, tofu and cereals. For more food calcium content information, visit http://ods.od.nih.gov/factsheets /calcium. Calcium supplements come in several different forms. Remember that the recommendations are for millgrams (mg) of elemental calcium which may be less than the total weight of the supplement. The amount of elemental calcium is required to be printed on the label. Calcium carbonate is the least expensive form. It must be taken on a full stomach to be properly absorbed. Some patients may experience gas or constipation. Calcium phosphate and calcium citrate may be taken either with or without food and tend to have less side effects but are generally more expensive. Because of its ability to neutralize stomach acid, calcium carbonate is found in some [id number]-[id number] antacid products, such as Tums and Rolaids . Depending on its strength, each chewable pill or softchew provides 200 to 400 mg of elemental calcium. The percentage of calcium absorbed depends on the total amount of elemental calcium consumed at one time. Absorption is highest in doses <500mg. So a woman who takes 1,000mg/day of calcium from supplements should split the dose and take 500mg at two separate times during the day. Too much calcium can cause kidney stones, constipation, difficulty absorbing other nutrients and calcium buildup in blood vessels. Women under 50 should not exceed 2500mg/day (2000mg/day for women over 50) of calcium from food and supplements. Excessive alcohol and caffeine intake can inhibit absorption of calcium. Calcium can reduce the absorption of some medications if taken at the same time of day (bisphosphonates, thyroid medication, Phenytoin and other seizure medications, some antibiotics and iron supplements). Vitamin D promotes calcium absorption in the gut and maintains adequate blood levels of calcium and phosphate for normal bone growth and bone remodeling. Vitamin D also helps regulate cell growth as well as nerve, muscle and immune system function. Vitamin D is produced in the skin as a result of ultraviolet sunlight rays and must be altered in the liver and kidney to become its active form. Recommended intake according to the National Institutes of Health is 600 International Units (IU) for girls and women ages 1-70 and 800 IU for women over 70. Very few foods in nature contain vitamin D. The flesh of fatty fish (such as salmon, tuna, and mackerel) and fish liver oils are among the best sources. Small amounts of vitamin D are found in beef liver, cheese, mushrooms and egg yolks. Most people meet at least some of their vitamin D needs through exposure to sunlight. Season, time of day, length of day, cloud cover, smog, skin melanin content, and sunscreen are among the factors that affect UV radiation exposure and vitamin D synthesis. Despite the importance of the sun for vitamin D synthesis, it is prudent to limit exposure of skin to sunlight and avoid tanning beds. UV radiation is a carcinogen responsible for most of the estimated 1.5 million skin cancers that occur annually in the [place]. Lifetime cumulative UV damage to skin is also responsible for some age-associated dryness and other cosmetic changes. In supplements and fortified foods, vitamin D is available in two forms, D2 (ergocalciferol) and D3 (cholecalciferol). The two are equivalent at normal supplement doses. For women who require high supplement doses because of vitamin D deficiency, D3 may work better to raise blood levels. Some medications can prevent proper absorption of Vitamin D. These include laxatives, corticosteroids like prednisone, the seizure drugs phenobarbital and phenytoin, the weight-loss drug orlistat ( Xenical and AlliTM) and the cholesterol-lowering drug cholestyramine (Questran , LoCholest , and Prevalite ). Talk to your doctor about adjusting your recommended daily vitamin D dosage if you take these medications. You should not exceed 4000 mg of vitamin D supplementation daily unless specifically prescribed by your doctor. documented in this encounter [facility] 12-20-2022 History of Presen t illness Narrative House Parent offered: Patient declines. Lida is a 67 year old who presents for an annual gynecologic exam without complaints. Works 32 hours a week at [employer] - really enjoys her job. Postmenopausal: Yes since age 51 HRT use: No. Last Pap: 2019 normal HPV: 2019 negative History of abnormal pap: No Last mammogram: today, pending History of abnormal mammogram: Yes , has needed additional imaging, scattered fibroglandular elements Sexually active: Yes, rarely due to ED Patient concerns for STD exposure: No. Time with current partner: 41 years Pain with intercourse: Yes, uses lubricant Postcoital bleeding: No Hot flashes: No Night sweats: No Vaginal dryness: Yes, lubricant helpful with SI Documentation from previous visit of 01/31/2019 was copied and pasted, documentation has been reviewed and edited as necessary for today's visit OB History T2 L2 SAB3 IAB0 Ectopic0 Multiple0 Live Births0 Comment: Menarche at age 12. G 5 P 2. AF[employer] 31. Menopause at age 51. Manager Nursing History LMP: 09/16/2006, Postmenopausal Age at Menarche: Age at First : Age at Menopause: Manager Nursing History Comments: Sexual Activity: Yes; Male; Postmenopausal Contraception: Tubal Ligation PAST MEDICAL HISTORY Diagnosis Date Abnormal mammogram, unspecified 10/29/2008 Acid reflux 11/28/2017 Acute, but ill-defined, cerebrovascular disease Cataract COVID-19 virus infection 05/24/2021 s/p COVID vaccine Depressive disorder, not elsewhere classified 03/23/2006 Impingement syndrome, shoulder, left Other acne Other bursitis disorders hips Pain in limb 03/23/2006 Right Wrist Pain Solitary cyst of breast 10/2008 right breast-MRI Variants of migraine, not elsewhere classified, without mention of intractable migraine without mention of status migrainosus PAST SURGICAL HISTORY Procedure Laterality Date DELIVERY ONLY 1988 , low transverse DELIVERY ONLY 1997 , low transverse COLONOSCOPY 2019 10 yr interval COLONOSCOPY FLX DX W/COLLJ SPEC WHEN PFRMD 12/09/2008 Colonoscopy DILATION & CURETTAGE DX&/THER NONOBSTETRIC 1987 Dilation & curettage DILATION & CURETTAGE DX&/THER NONOBSTETRIC 1987 Dilation & curettage DILATION & CURETTAGE DX&/THER NONOBSTETRIC 1994 Dilation & curettage DILATION & CURETTAGE DX&/THER NONOBSTETRIC 1995 Dilation & curettage ESOPHAGOGASTRODUODENOSCOPY TRANSORAL DIAGNOSTIC 01/02/2018 EGD MRI BREAST THAIS 10/02/2008 PAST SURGICAL HISTORY OF PAST SURGICAL HISTORY OF 1997 BTO PAST SURGICAL HISTORY OF 04/23/2009 athroscopy right shoulder REDUCTION OF LARGE BREAST 02/2012 XCAPSL CTRC RMVL INSJ IO LENS PROSTH W/O ECP Right 09/28/2018 Cataract Extraction with Femtosecond Laser (LenSx) XCAPSL CTRC RMVL INSJ IO LENS PROSTH W/O ECP Left Femtosecond with LRI FAMILY HISTORY Problem Relation Age of Onset Diabetes Mother Breast Cancer Mother diagnosed at age 74 Hypertension Father Heart Father Diabetes Father Age 82 Cataract Father SOCIAL HISTORY Social History Tobacco Use Smoking status: Never Smokeless tobacco: Never Vaping Use Vaping Use: Never used Substance Use Topics Alcohol use: Yes Comment: Rarely Drug use: No REVIEW OF SYSTEMS Abdomen: No abdominal pain, nausea, vomiting, diarrhea, or constipation. No bloating, early satiety, indigestion, or increased flatulence. Bladder: No dysuria, gross hematuria, urinary frequency, urinary urgency, or incontinence Breast: No breast lumps, nipple d/c, overlying skin changes, redness or skin retraction Allergies and current medication updated:Yes EXAM: BP 120/64 Ht 5' 4 (1.63m) Wt 175 lb (79.4kg) LMP 09/16/2006 BMI 30.02 kg/(m^2). GENERAL: pleasant, female in no apparent distress HEENT: Normocephalic, atraumatic, mucus membranes moist, and no lesions NECK: Supple, full range of motion, no adenopathy, and thyroid normal DERMATOLOGY: Normal, without lesions, non-icteric, and non-hirsute BREAST: soft, non-tender, symmetric, no dominant mass, normal nipple-areolar complex, no lymphadenopathy, and no nipple discharge CHEST: Normal inspiratory effort ABDOMEN: soft, non-tender, and no masses PELVIC: external genitalia normal, normal Bartholin's glands, urethra, Aventura's glands, no vulvar lesions, no cervical lesions, physiologic discharge present, normal appearing perineal body and perianal region BIMANUAL: uterus normal size, shape and consistency, no adnexal masses, and non-tender RECTOVAGINAL: deferred. NEURO: alert and oriented x3,exam grossly non-focal EXTREMITIES: normal ASSESSMENT/PLAN: 1) Health maintenance: Pap done with HPV. Mammogram ordered Mammogram up to date Nutrition, exercise and routine health maintenance exams reviewed. Calcium/Vitamin D supplementation information provided. Colon cancer screening: up to date with screening BMD: ordered History of osteopenia 2) Follow up one year or sooner as needed Kelsi Enriquez APRN.CNP documented in this encounter [facility] 12-06-2022 Miscellaneous Notes Order placed. Thank you Lakia Diane APRN.CNP Pt called in asking for the mammogram screening with luis. She states that's what she had last year and her insurance pays for it. She was asking if provider could change it to that instead of the regular mammogram. documented in this encounter [facility] 10-25-2022 Miscellaneous Notes Contacted patient and scheduled mammogram and annual in December per patient request. Tish Fink Pss Mammogram ordered, please do not schedule earlier than a year from last mammogram. Thank you Lakia Diane APRN.INDUSTRIAL CUSTODIAN Patient requesting mamm order. Patient asking to schedule ob annual and mamm on same day. Please advise patient when order entered for scheduling. documented in this encounter [facility] 10-25-2022 Miscellaneous Notes Patient has been identified by name and date of : Yes, Provider Debi Lindsay RN Date 10/25/2021 Time 8:08 am Patient phones for refill(s): Requested Prescriptions Pending Prescriptions Disp Refills escitalopram oxalate (LEXAPRO) 5 mg tablet 90 tablet 3 Sig: Take 1 tablet by mouth once daily. Date of last office visit with pcp: 07/26/2022 Future appt: 01/24/2022 Last 2 Encounter Wt Readings: Date: Wt: 07/26/2022 76.2 kg (168 lb) 01/18/2022 74.8 kg (165 lb) Previous labs/tests for medication: Blood Pressure: BUN (mg/dL) Date Value 07/11/2021 12 Sodium (mmol/L) Date Value 07/11/2021 139 Last 1 Encounter BP Readings: Date: BP: 07/26/2022 124/82 Liver Function: ALT (U/L) Date Value 07/11/2021 16 AST (U/L) Date Value 07/11/2021 20 Please advise. Thank you. Debi Lindsay RN documented in this encounter [facility] 07-26-2022 Instructions Lakia Diane APRN.CNP - 07/26/2022 9:02 AM EDT Get your second Shingrix vaccine this month. 1st dose was 02/2022. documented in this encounter [facility] 07-26-2022 History of Presen t illness Narrative CC: Patient presents with: F/U 6 months Recheck: 6 month follow up HPI Tabitha Nagy is a 66 year old female who presents today for 6 month follow up on anxiety and hyperlipidemia. Anxiety: Controlled with current dose of lexapro. Sleep: is described as normal Alcohol use: drinks less than one drink a day Drug use: No Appetite: good Stresses: Major stressor: Has a lot going on Suicidal Thoughts: No suicidal ideation, intent or plan Support: family Counseling: No HLD: Exercises 3 days a week with swimming and has decreased fat in her diet and started eating much healthier. Denies any chest pain, shortness of breath, or exercise intolerance. REVIEW OF SYSTEMS General: no fevers, no chills, no night sweats, no recurrent infections, no change in appetite, no change in energy, and no significant changes in weight Respiratory: no cough, no wheezing, no shortness of breath, no hemoptysis Cardiovascular: no chest pain, no chest pressure, no palpitations, and no swelling Psych: See HPI. PHQ2 is 0 Neurologic: No headache, weakness, numbness, tingling, dizziness, syncope. PAST MEDICAL HISTORY Diagnosis Date Abnormal mammogram, unspecified 10/29/2008 Acid reflux 11/28/2017 Acute, but ill-defined, cerebrovascular disease Cataract COVID-19 virus infection 05/24/2021 s/p COVID vaccine Depressive disorder, not elsewhere classified 03/23/2006 Impingement syndrome, shoulder, left Other acne Other bursitis disorders hips Pain in limb 03/23/2006 Right Wrist Pain Solitary cyst of breast 10/2008 right breast-MRI Variants of migraine, not elsewhere classified, without mention of intractable migraine without mention of status migrainosus PAST SURGICAL HISTORY Procedure Laterality Date DELIVERY ONLY 1988 , low transverse DELIVERY ONLY 1997 , low transverse COLONOSCOPY 2019 10 yr interval COLONOSCOPY FLX DX W/COLLJ SPEC WHEN PFRMD 12/09/2008 Colonoscopy DILATION & CURETTAGE DX&/THER NONOBSTETRIC 1986 Dilation & curettage DILATION & CURETTAGE DX&/THER NONOBSTETRIC 1987 Dilation & curettage DILATION & CURETTAGE DX&/THER NONOBSTETRIC 1994 Dilation & curettage DILATION & CURETTAGE DX&/THER NONOBSTETRIC 1995 Dilation & curettage ESOPHAGOGASTRODUODENOSCOPY TRANSORAL DIAGNOSTIC 01/02/2018 EGD MRI BREAST THAIS 10/02/2008 PAST SURGICAL HISTORY OF PAST SURGICAL HISTORY OF 1997 BTO PAST SURGICAL HISTORY OF 04/23/2009 athroscopy right shoulder REDUCTION OF LARGE BREAST 02/2012 XCAPSL CTRC RMVL INSJ IO LENS PROSTH W/O ECP Right 09/28/2018 Cataract Extraction with Femtosecond Laser (LenSx) XCAPSL CTRC RMVL INSJ IO LENS PROSTH W/O ECP Left Femtosecond with LRI ALLERGIES Acetaminophen-Codeine, Fluoxetine, Prozac [Fluoxetine Hcl], Serzone [Nefazodone Hcl], and Tramadol MEDICATIONS escitalopram oxalate (LEXAPRO) 5 mg tablet Take 1 tablet by mouth once daily. zolpidem (AMBIEN) 5 mg tablet Take 5 mg by mouth at bedtime as needed. Cholecalciferol, Vitamin D3, (VITAMIN D-3) 2,000 unit cap Take 1 capsule by mouth once daily. FAMILY HISTORY Problem Relation Age of Onset Hypertension Father Heart Father Diabetes Father Age 82 Cataract Father Diabetes Mother Breast Cancer Mother diagnosed at age 74 Social History Tobacco Use Smoking status: Never Smokeless tobacco: Never Vaping Use Vaping Use: Never used Substance Use Topics Alcohol use: Yes Comment: Rarely Drug use: No PHYSICAL EXAM BP 124/82 Pulse 68 Resp 16 Wt 76.2 kg (168 lb) LMP 09/16/2006 BMI 28.84 kg/m General Appearance: well appearing, in no acute distress, alert Pysch: mood and affect broad and appropriate Skin: Skin color, texture, turgor normal for age; Eyes: conjunctiva pink and moist, no icterus, sclera white, non-injected Lungs: Lungs clear to auscultation. No wheezing, rhonchi, rales. Heart: RRR without murmur, gallop, or rubs. No ectopy Health maintenance reviewed with patient: HEPATITIS C SCREENING Never done HIV SCREENING Never done COVID-19 VACCINE(3 - Booster for Pfizer series) due on 03/06/2021 DEPRESSION ASSESSMENT Never done DTAP,TDAP,TD(1 - Tdap) due on 01/19/2022 SHINGRIX VACCINE(2 of 2) due on 05/05/2022 INFLUENZA(1) due on 04/15/2023 MAMMOGRAM due on 11/16/2022 PAP TESTING due on 02/01/2024 HPV TESTING due on 02/01/2024 DIABETES SCREEN due on 07/11/2024 LIPID SCREEN due on 07/11/2026 COLORECTAL CANCER SCREENING due on 02/12/2029 DATA REVIEWED: No new labs ASSESSMENT/PLAN: 1. Anxiety - ICD9: 300.00, ICD10: F41.9 (primary diagnosis) - controlled at this time. - Reviewed concept of neurochemical imbalance wth depression/anxiety, treatment options and benefits of counseling in combination with medication. Also reviewed benefits of sleep hygeine, diet and exercise - Instructed patient to contact office or [id number] after-hours promptly should condition worsen or any new symptoms appear. - Counseling Center [facility] and after hours crisis line 2. Mixed hyperlipidemia - ICD9: 272.2, ICD10: E78.2 - to be determined upon return of lab results - Continue current medication. - red yeast rice - Encouraged following a low fat, low cholesterol diet. - Discussed the benefits of regular aerobic exercise and weight loss. - COMP METABOLIC PANEL - LIPID PANEL BASIC 3. Annual physical exam - ICD9: V70.0, ICD10: Z00.00 - will have full annual exam at next appointment. - COMP METABOLIC PANEL - LIPID PANEL BASIC - CBC + DIFF Prescription instructions reviewed with patient as applicable. Potential red flag symptoms discussed with the patient. Reviewed appropriate action plan to take if red flag symptoms occur. Patient agreeable to treatment plan. Lakia Diane APRN.MARCELLO documented in this encounter [facility] 07-21-2022 Instructions Anuj Vides MD - 07/21/2022 3:17 PM EDT Please call the office ([phone]) immediately if you notice more flashes of light, a sudden increase in floaters, or a sudden change in vision. Continue: Systane Complete Artificial Tears - Use 1 Drop into both eyes three times a day. Patient was given both written and verbal information on flashes and floaters. Patient was instructed to call the office ([phone]) immediately upon noticing flashes of light, increase in floaters, or changes in vision. If you have any questions please contact our office at [phone]. After office hours or on the weekend, please call Dr. Vides on his cell phone at [phone]. documented in this encounter [facility] 07-21-2022 History of Presen t illness Narrative ASSESSMENT/PLAN: 1. Posterior vitreous detachment of right eye - ICD9: 379.21, ICD10: H43.811 (primary diagnosis) Please call the office ([phone]) immediately if you notice more flashes of light, a sudden increase in floaters, or a sudden change in vision. Continue: Systane Complete Artificial Tears - Use 1 Drop into both eyes three times a day. 2. Vitreous floaters of both eyes - ICD9: 379.24, ICD10: H43.393 Patient was given both written and verbal information on flashes and floaters. Patient was instructed to call the office ([phone]) immediately upon noticing flashes of light, increase in floaters, or changes in vision. 3. Pseudophakia of both eyes - ICD9: V43.1, ICD10: Z96.1 -stable 4. Anxiety - ICD9: 300.00, ICD10: F41.9 -continue care with PCP Anuj Vides MD I have confirmed and edited as necessary the relevant ophthalmic history, review of systems, surgical history, and ophthalmological examination findings as obtained by the ophthalmic technical staff. I have seen and examined Tabitha Nagy. I have discussed the examination findings, diagnosis, and treatment options with Tabitha Nagy and/or her family. I have also reviewed and agree with the assessment and plan as stated above and agree with all its relevant components. I gave the patient the opportunity to ask questions about the findings, diagnosis, and treatment options. 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 018 Hypertrophy of breast 05/19/2011 05/29/2014 Psoriasis 09/07/2010 05/26/2015 Stress 09/07/2010 05/26/2015 Other seborrheic dermatitis 09/02/200605/17 Depressive disorder, not elsewhere classified 05/26/2015 Pain in limb 03/23/2006 05/26/2015 Overview: Right Wrist Pain Lumbago 12/06/2005 05/26/2015 documented as of this encounter (statuses as of 07/26/2022) [facility] History of Past illness Narrative* Problem Noted Date Resolved Date Regular astigmatism of right eye 09/02/2018 09/30/2018 Combined forms of age-related cataract of left e ye 09/02/2018 10/06/2018 Combined forms of age-related cataract of right eye 08/14/2018 09/30/2018 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 018 Hypertrophy of breast 05/19/2011 05/29/2014 Psoriasis 09/07/2010 05/26/2015 Stress 09/07/2010 05/26/2015 Other seborrheic dermatitis 09/02/200605/17 Depressive disorder, not elsewhere classified 05/26/2015 Pain in limb 03/23/2006 05/26/2015 Overview: Right Wrist Pain Lumbago 12/06/2005 05/26/2015 documented as of this encounter (statuses as of 10/22/2022) [facility] History of Past illness Narrative* Problem Noted Date Resolved Date Regular astigmatism of right eye 09/02/2018 09/30/2018 Combined forms of age-related cataract of left e ye 09/02/2018 10/06/2018 Combined forms of age-related cataract of right eye 08/14/2018 09/30/2018 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 018 Hypertrophy of breast 05/19/2011 05/29/2014 Psoriasis 09/07/2010 05/26/2015 Stress 09/07/2010 05/26/2015 Other seborrheic dermatitis 09/02/200605/17 Depressive disorder, not elsewhere classified 05/26/2015 Pain in limb 03/23/2006 05/26/2015 Overview: Right Wrist Pain Lumbago 12/06/2005 05/26/2015 documented as of this encounter (statuses as of 10/26/2022) [facility] History of Past illness Narrative* Problem Noted Date Resolved Date Regular astigmatism of right eye 09/02/2018 09/30/2018 Combined forms of age-related cataract of left e ye 09/02/2018 10/06/2018 Combined forms of age-related cataract of right eye 08/14/2018 09/30/2018 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2 018 Hypertrophy of breast 05/19/2011 05/29/2014 Psoriasis 09/07/2010 05/26/2015 Stress 09/07/2010 05/26/2015 Other seborrheic dermatitis 09/02/200605/17 Depressive disorder, not elsewhere classified 05/26/2015 Pain in limb 03/23/2006 05/26/2015 Overview: Right Wrist Pain Lumbago 12/06/2005 05/26/2015 documented as of this encounter (statuses as of 10/27/2022) [facility] History of Past illness Narrative* Problem Noted Date Resolved Date Regular astigmatism of right eye 09/02/2018 09/30/2018 Combined forms of age-related cataract of left e ye 09/02/2018 10/06/2018 Combined forms of age-related cataract of right eye 08/14/2018 09/30/2018 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 018 Hypertrophy of breast 05/19/2011 05/29/2014 Psoriasis 09/07/2010 05/26/2015 Stress 09/07/2010 05/26/2015 Other seborrheic dermatitis 09/02/200605/17 Depressive disorder, not elsewhere classified 05/26/2015 Pain in limb 03/23/2006 05/26/2015 Overview: Right Wrist Pain Lumbago 12/06/2005 05/26/2015 documented as of this encounter (statuses as of 12/06/2022) [facility] History of Past illness Narrative* Problem Noted Date Resolved Date Regular astigmatism of right eye 09/02/2018 09/30/2018 Combined forms of age-related cataract of left e ye 09/02/2018 10/06/2018 Combined forms of age-related cataract of right eye 08/14/2018 09/30/2018 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 018 Hypertrophy of breast 05/19/2011 05/29/2014 Psoriasis 09/07/2010 05/26/2015 Stress 09/07/2010 05/26/2015 Other seborrheic dermatitis 09/02/200605/17 Depressive disorder, not elsewhere classified 05/26/2015 Pain in limb 03/23/2006 05/26/2015 Overview: Right Wrist Pain Lumbago 12/06/2005 05/26/2015 documented as of this encounter (statuses as of 12/20/2022) [facility] History of Past illness Narrative* Problem Noted Date Resolved Date Regular astigmatism of right eye 09/02/2018 09/30/2018 Combined forms of age-related cataract of left e ye 09/02/2018 10/06/2018 Combined forms of age-related cataract of right eye 08/14/2018 09/30/2018 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 018 Hypertrophy of breast 05/19/2011 05/29/2014 Psoriasis 09/07/2010 05/26/2015 Stress 09/07/2010 05/26/2015 Other seborrheic dermatitis 09/02/200605/17 Depressive disorder, not elsewhere classified 05/26/2015 Pain in limb 03/23/2006 05/26/2015 Overview: Right Wrist Pain Lumbago 12/06/2005 05/26/2015 documented as of this encounter (statuses as of 12/22/2022) [facility] History of Past illness Narrative* Problem Noted Date Diagnosed Date Resolved Date Regular astigmatism of right eye 09/02/2018 09/30/2018 Combined forms of age-relate d cataract of left eye 09/02/2018 10/06/2018 Combined forms of age-relate d cataract of right eye 08/14/2018 09/30/2018 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 Hypertrophy of breast 05/19/20112013 Psoriasis 09/07/2010 05/26/2015 Stress 09/07/2010 05/26/2015 Other seborrheic dermatitis 09/02/2006 05/26/2015 Depressive disorder, not elsewhere classified 03/23/20 06 05/26/2015 Pain in limb 03/23/2006 05/26/2015 Overview: Right Wrist Pain Lumbago 12/06/2005 05/26/2015 documented as of this encounter (statuses as of 07/26/2023) [facility] History of Past illness Narrative* Problem Noted Date Diagnosed Date Resolved Date Regular astigmatism of right eye 09/02/2018 09/30/2018 Combined forms of age-relate d cataract of left eye 09/02/2018 10/06/2018 Combined forms of age-relate d cataract of right eye 08/14/2018 09/30/2018 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 Hypertrophy of breast 05/19/20112013 Psoriasis 09/07/2010 05/26/2015 Stress 09/07/2010 05/26/2015 Other seborrheic dermatitis 09/02/2006 05/26/2015 Depressive disorder, not elsewhere classified 03/23/20 06 05/26/2015 Pain in limb 03/23/2006 05/26/2015 Overview: Right Wrist Pain Lumbago 12/06/2005 05/26/2015 documented as of this encounter (statuses as of 08/21/2023) [facility] History of Past illness Narrative* Problem Noted Date Diagnosed Date Resolved Date Regular astigmatism of right eye 09/02/2018 09/30/2018 Combined forms of age-relate d cataract of left eye 09/02/2018 10/06/2018 Combined forms of age-relate d cataract of right eye 08/14/2018 09/30/2018 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 Hypertrophy of breast 05/19/20112013 Psoriasis 09/07/2010 05/26/2015 Stress 09/07/2010 05/26/2015 Other seborrheic dermatitis 09/02/2006 05/26/2015 Depressive disorder, not elsewhere classified 03/23/20 06 05/26/2015 Pain in limb 03/23/2006 05/26/2015 Overview: Right Wrist Pain Lumbago 12/06/2005 05/26/2015 documented as of this encounter (statuses as of 08/21/2023) [facility] Diagnosis Posterior vitreous detachment of right eye- Primary Vitreous degeneration Vitreous floaters of both eyes Pseudophakia of both eyes Lens replaced by other means Anxiety Anxiety state, unspecified [facility] Diagnosis Anxiety- Primary Anxiety state, unspecified Mixed hyperlipidemia Annual physical exam Routine general medical examination at a health care facility [facility] Diagnosis Breast cancer screening by mammogram- Primary [facility] Diagnosis Encounter for screening mammogram for malignant neoplasm of breast- Primary Other screening mammogram [facility] Diagnosis Encounter for gynecological examination without abnormal finding- Primary Routine gynecological examination Encounter for screening for malignant neoplasm of cervix Screening for malignant neoplasm of the cervix Special screening examination for human papillomavirus (HPV) Encounter for screening mammogram for malignant neoplasm of breast Other screening mammogram Dense breasts Inconclusive mammogram Encounter for screening for osteoporosis Special screening for osteoporosis History of osteopenia Personal history of other musculoskeletal disorders Asymptomatic postmenopausal state [facility] Diagnosis Cataract, secondary, not obscuring vision, right- Primary Posterior vitreous detachment of right eye Vitreous degeneration Vitreous floaters of both eyes Pseudophakia of both eyes Lens replaced by other means Anxiety Anxiety state, unspecified [facility] Diagnosis Encounter for screening for osteoporosis Special screening for osteoporosis History of osteopenia Personal history of other musculoskeletal disorders Asymptomatic postmenopausal state [facility] Diagnosis Encounter for screening mammogram for malignant neoplasm of breast Other screening mammogram documented in this encounter [facility] for referral (narrative)* Diagnostic Procedure Only (Routine) - Authorized Specialty Diagnoses / Procedures Referred By Jany velez Referred To Contact [facility] Diagnoses Breast cancer screening by mammogram Procedures MONICA SCREENING SCREENING MAMMOGRAPHY BI 2-VIEW BREAST INC Lakia Eisenberg APRN.CNP [address] [place] [address] [facility] [address] [address] Referral ID Status Reason Start Date Expiration Date Visits Requested Visits Authorized [id number] Authorized Auto-Generat ed Referral 10/25/2022 11/24/2023 1 1 [facility] for referral (narrative)* Diagnostic Procedure Only (Routine) - Pending Review Specialty Diagnoses / Procedures Referred By Contac t Referred To Contact [facility] Diagnoses Encounter for screening mammogram for malignant neoplasm of breast Procedures MONICA SCREENING W LUIS SCREENING DIGITAL BREAST TOMOSYNTHESIS BI SCREENING MAMMOGRAPHY BI 2-VIEW BREAST INC Lakia Eisenberg APRN.CNP [address] [place] [address] [facility] [address] [place] [address] Referral ID Status Reason Start Date Expiration Date Visits Requested Visits Authorized [id number] Pending Review Auto-Generat ed Referral 12/06/2022 01/05/2024 1 1 [facility] for referral (narrative)* Diagnostic Procedure Only (Routine) - Authorized Specialty Diagnoses / Procedures Referred By Contac t Referred To Contact [facility] Diagnoses Encounter for screening mammogram for malignant neoplasm of breast Dense breasts Procedures MONICA SCREENING W LUIS SCREENING DIGITAL BREAST TOMOSYNTHESIS BI SCREENING MAMMOGRAPHY BI 2-VIEW BREAST INC CAD Kelsi Enriquez APRN.INDUSTRIAL CUSTODIAN [address] [place] [address] [facility] [address] [place] [address] Referral ID Status Reason Start Date Expiration Date Visits Requested Visits Authorized [id number] Authorized Auto-Generat ed Referral 12/20/2022 01/19/2024 1 1 [facility] for referral (narrative)* Diagnostic Procedure Only (Routine) - Closed Specialty Diagnoses / Procedures Referred By Contac t Referred To Contact [facility] Diagnoses Encounter for screening mammogram for malignant neoplasm of breast Procedures MONICA SCREENING W LUIS SCREENING DIGITAL BREAST TOMOSYNTHESIS BI SCREENING MAMMOGRAPHY BI 2-VIEW BREAST INC CAD Lakia Diane APRN.INDUSTRIAL CUSTODIAN [address] [place] [address] [facility] [address] [place] [address] Referral ID Status Reason Start Date Expiration Date V isits Requested Visits Authorized [id number] Closed Auto-Generate d Referral 12/06/2022 01/05/2024 1 1 [facility] for visit Narrative* Diagnostic Procedure Only (Routine) - Closed Specialty Diagnoses / Procedures Referred By Contac t Referred To Contact [facility] Diagnoses Encounter for screening mammogram for malignant neoplasm of breast Procedures MONICA SCREENING W LUIS SCREENING DIGITAL BREAST TOMOSYNTHESIS BI SCREENING MAMMOGRAPHY BI 2-VIEW BREAST INC CAD Lakia Diane APRN.INDUSTRIAL CUSTODIAN [address] [place] [address] [facility] [address] [place] [address] Referral ID Status Reason Start Date Expiration Date V isits Requested Visits Authorized [id number] Closed Auto-Generate d Referral 12/06/2022 01/05/2024 1 1 [facility] Summary Purpose Family History No Family History Records FoundNo Family History Records FoundNo Family History Records FoundNo Family History Records Found Advance Directives No Advanced Directives Records FoundNo Advanced Directives Records FoundNo Advanced Directives Records FoundNo Advanced Directives Records Found Medications Administered Section Active Administered Medications - up to 3 most recent administrations Medication Order MAR Action Action Date Dose Rate Site PHENYLephrine 2.5 % 1 Drop (AK-DILATE, ASHLEY-SYNEPHRINE) 1 Drop, BOTH EYES, DIRECTED, Starting on Tue07/21/22 at 1500, Until Gloria 07/22/22 at 0259, Administer for dilation PROTECT FROM LIGHT Given 07/21/2022 3:00 PM EDT 1 Drop proparacaine 0.5 % 1 Drop (ALCAINE) 1 Drop, BOTH EYES, DIRECTED, Starting on Tue07/21/22 at 1500, Until Gloria 07/22/22 at 0259, Administer for pneumo tonometry, tonopen tonometry, or pachymetry. In the event of a proparacaine shortage, administer tetracaine 0.5% ophthalmic drops 1 drop in the left eye as directed for pneumo tonometry, tonopen tonometry, or pachymetry Given 07/21/2022 3:00 PM EDT 1 Drop tropicamide 1 % 1 Drop (MYDRIACYL) 1 Drop, BOTH EYES, DIRECTED, Starting on Tue07/21/22 at 1500, Until Gloria 07/22/22 at 0259, Administer for dilation Given 07/21/2022 3:00 PM EDT 1 Drop Inactive Administered Medications - up to 3 most recent administrations Medication Order MAR Action Action Date Dose Rate Site PHENYLephrine 2.5 % 1 Drop (AK-DILATE, ASHLEY-SYNEPHRINE) 1 Drop, BOTH EYES, DIRECTED, Starting on 07/25/23 at 1430, Until 07/26/23 at 0229, Administer for dilation PROTECT FROM LIGHT Given 07/25/2023 2:30 PM EDT 1 Drop proparacaine 0.5 % 1 Drop (ALCAINE) 1 Drop, BOTH EYES, DIRECTED, Starting on Tue07/25/23 at 1430, Until Tue07/26/23 at 0229, Administer for pneumo tonometry, tonopen tonometry, or pachymetry. In the event of a proparacaine shortage, administer tetracaine 0.5% ophthalmic drops 1 drop in the left eye as directed for pneumo tonometry, tonopen tonometry, or pachymetry Given 07/25/2023 2:30 PM EDT 1 Drop tropicamide 1 % 1 Drop (MYDRIACYL) 1 Drop, BOTH EYES, DIRECTED, Starting on Tue07/25/23 at 1430, Until Tue07/26/23 at 0229, Administer for dilation Given 07/25/2023 2:30 PM EDT 1 Drop Additional Source Comments INFORMATION SOURCE (unrecogn ized section and content) DATE CREATED AUTHOR AUTHOR'S ORGANIZ ATION 10/09/2018 [facility] DATE CREATED AUTHOR AUTHOR'S ORGANIZ ATION 01/20/2021 [facility] DATE CREATED AUTHOR AUTHOR'S ORGANIZ ATION 07/27/2023 [facility] Source Comments (unrecognize d section and content) In the event this informatio n is protected by the Federal Confidentiality of Alcohol and Drug Abuse Patient Records regulations: The Federal rules restrict any use of the information to criminally investigate or prosecute any alcohol or drug abuse patient.[facility] event this information is protected by the Federal Confidentiality of Alcohol and Drug Abuse Patient Records regulations: The Federal rules restrict any use of the information to criminally investigate or prosecute any alcohol or drug abuse patient.[facility] the event this information is protected by the Federal Confidentiality of Alcohol and Drug Abuse Patient Records regulations: The Federal rules restrict any use of the information to criminally investigate or prosecute any alcohol or drug abuse patient.[facility] the event this information is protected by the Federal Confidentiality of Alcohol and Drug Abuse Patient Records regulations: The Federal rules restrict any use of the information to criminally investigate or prosecute any alcohol or drug abuse patient.[facility] the event this information is protected by the Federal Confidentiality of Alcohol and Drug Abuse Patient Records regulations: The Federal rules restrict any use of the information to criminally investigate or prosecute any alcohol or drug abuse patient.[facility] the event this information is protected by the Federal Confidentiality of Alcohol and Drug Abuse Patient Records regulations: The Federal rules restrict any use of the information to criminally investigate or prosecute any alcohol or drug abuse patient.[facility] the event this information is protected by the Federal Confidentiality of Alcohol and Drug Abuse Patient Records regulations: The Federal rules restrict any use of the information to criminally investigate or prosecute any alcohol or drug abuse patient.[facility] the event this information is protected by the Federal Confidentiality of Alcohol and Drug Abuse Patient Records regulations: The Federal rules restrict any use of the information to criminally investigate or prosecute any alcohol or drug abuse patient.[facility] the event this information is protected by the Federal Confidentiality of Alcohol and Drug Abuse Patient Records regulations: The Federal rules restrict any use of the information to criminally investigate or prosecute any alcohol or drug abuse patient.[facility] the event this information is protected by the Federal Confidentiality of Alcohol and Drug Abuse Patient Records regulations: The Federal rules restrict any use of the information to criminally investigate or prosecute any alcohol or drug abuse patient.[facility] the event this information is protected by the Federal Confidentiality of Alcohol and Drug Abuse Patient Records regulations: The Federal rules restrict any use of the information to criminally investigate or prosecute any alcohol or drug abuse patient.[facility] Reason for Visit (unrecogniz ed section and content) Reason Comments F/U 6 months Recheck 6 month follow up Reason Comments Refill Request Reason Onset Date Comments Refill Request 10/25/2022 Reason Comments Orders Reason Comments Vsion Decreased in the right eye for dis tance Clear Floater in the right eye Ongoing Care Teams (unrecognized sec tion and content) Director Of First Impressions Relationship Specialty Start Date End Date Sada Sanabria MD [address] [place] [address] PCP - General Internal Medicine 11/28/17 Director Of First Impressions Relationship Specialty Start Date End Date Sada Sanabria MD [address] [place] [address] PCP - General Internal Medicine 11/28/17 Director Of First Impressions Relationship Specialty Start Date End Date Sada Sanabria MD [address] [place] [address] PCP - General Internal Medicine 11/28/17 Director Of First Impressions Relationship Specialty Start Date End Date Sada Sanabria MD [address] [place] [address] PCP - General Internal Medicine 11/28/17 Director Of First Impressions Relationship Specialty Start Date End Date Sada Sanabria MD [address] [facility] [place], [place] [address] PCP - General Internal Medicine 11/28/17 Director Of First Impressions Relationship Specialty Start Date End Date Sada Sanabria MD [address] [place] [address] PCP - General Internal Medicine 11/28/17 Director Of First Impressions Relationship Specialty Start Date End Date Sada Sanabria MD [address] [facility], [place] [address] PCP - General Internal Medicine 11/28/17 Director Of First Impressions Relationship Specialty Start Date End Date Sada Sanabria MD [address] [facility] [place], [place] [address] PCP - General Internal Medicine 11/28/17 07/24/23 Director Of First Impressions Relationship Specialty Start Date End Date Sada Sanabria MD [address] [facility] [place], [place] [address] PCP - General Internal Medicine 11/28/17 07/24/23 FOR RECORDS PERTAINING TO PATIENTS WHO ARE OR HAVE BEEN ENROLLED IN A CHEMICAL DEPENDENCY/SUBSTANCEABUSE PROGRAM, SOME INFORMATION MAY BE OMITTED. This clinical summary was aggregated from multiple sources. Caution should be exercised in using it in the provision of clinical care. This summary normalizes information from multiple sources, and as a consequence, information in this document may materially change the coding, format and clinical context of patient data. In addition, data may be omitted in some cases. CLINICAL DECISIONS SHOULD BE BASED ON THE PRIMARY CLINICAL RECORDS. [facility] provides no warranty or guarantee of the accuracy or completeness of information in this document.
[2023-10-30] MEDS: predniSONE 20 MG Tablet 60 MG PO (12:40)
== END 2023-10-30 12:44 | disposition home or self-care (01) ==
PROVIDERS: Emergency Provider Emergency Medicine; PCP Internal Medicine; Visit Provider Emergency Medicine
DX: M75.32 Calcific tendinitis of left shoulder (principal)
CPT/HCPCS: 73030; 99282

== ENCOUNTER → 2024-05-23 | Outpatient (CLI) | payer OTHER, SELFPAY ==
--- NOTE | 2024-05-23 12:49 | NEURO ---
NCS and/or EMG Patient Report Ordering Doctor: Sandro Mccormack DATE OF SERVICE: 05/23/24 Tabitha presents with complains of intermittent pain and numbness in the right wrist and palm. Diagnostic findings: Right median motor nerve demonstrates normal distal latency and amplitude with borderline reduced conduction velocity. Right ulnar motor response is within normal limits including conduction across the elbow. Normal right median and ulnar F?waves. Sensory responses are within normal limits. Needle EMG testing was performed the right upper limb. All muscles tested showed no evidence of denervation with normal motor unit action potentials. After diagnostic impression: This is a normal electrodiagnostic study of the right upper limb. There is no electrodiagnostic evidence for peripheral neuropathy, including carpal tunnel or cubital tunnel syndrome. There is no electrodiagnostic evidence for cervical radiculopathy. Multi Select Codes Neurology Neurology Interp Codes: 70386-13 Musc test done w/n test comp (interp) and 37750-89 Nrv cndj test 7-8 studies (interp)
== END | disposition home or self-care (01) ==
PROVIDERS: PCP Internal Medicine; Referring Provider Student in an Organized Health Care Education/Training Program; Visit Provider Student in an Organized Health Care Education/Training Program
DX: R20.2 Paresthesia of skin (principal); M79.641 Pain in right hand; G56.01 Carpal tunnel syndrome, right upper limb
CPT/HCPCS: 95886; 95910